=== PATIENT | female | born 1950 | race Caucasian/White ===

== ENCOUNTER 2018-12-29 21:24 | Emergency (ER) | payer MEDICARE ==
[2018-12-29] MEDS ORDERED: Ketorolac TAB * 10 MG TAB PO ONE (23:56)
[2018-12-29] MEDS ORDERED: LoraTADine TAB(NF) 10 MG TAB (AUTOSUB to CETIRIZINE) PO ONE (23:58)
--- NOTE | 2018-12-30 00:36 | ED ---
Throat Pain/Nasal Congestion - HPI Summary HPI Summary: Patient complains of cold symptoms 1 week with sudden onset right ear pain today. Denies fever, sore throat, ROGEL, neck stiffness, N/V/D, CP, SOB, abdominal pain, change in urine, change in BM. Medical history is none. Patient took dayquil at 1 PM. - History of Current Complaint Chief Complaint: EDEarPain Time Seen by Provider: 12/29/18 23:45 Hx Obtained From: Patient Onset/Duration: Sudden Onset Severity: Severe Associated Signs And Symptoms: Positive: Negative Cough: Nonproductive - Allergies/Home Medications Allergies/Adverse Reactions: Allergies Allergy/AdvReac Type Severity Reaction Status Date / Time codeine Allergy Nausea And Verified 12/29/18 21:27 Vomiting PMH/Surg Hx/FS Hx/Imm Hx Endocrine/Hematology History: Denies: Hx Anticoagulant Therapy Cardiovascular History: Denies: Hx Cardiac Arrest History: Denies: Hx Dialysis Sensory History: Denies: Hx Eye Prosthesis Opthamlomology History: Denies: Hx Legally Blind EENT History: Denies: Hx Deafness Neurological History: Denies: Hx Dementia Psychiatric History: Denies: Hx Autism Infectious Disease History: No Infectious Disease History: Denies: Traveled Outside the [place] in Last 30 Days - Social History Alcohol Use: None Substance Use Type: Reports: None Smoking Status (MU): Former Smoker Review of Systems Constitutional: Negative Eyes: Negative Positive: Ear Ache, Nasal Discharge Cardiovascular: Negative Positive: Cough Gastrointestinal: Negative Genitourinary: Negative Musculoskeletal: Negative Skin: Negative Neurological: Negative Psychological: Normal All Other Systems Reviewed And Are Negative: Yes Physical Exam Triage Information Reviewed: Yes Vital Signs On Initial Exam: Initial Vitals Temp Pulse Resp BP Pulse Ox 98.5 F 56 18 194/88 97 12/29/18 21:26 12/29/18 21:26 12/29/18 21:26 12/29/18 21:26 12/29/18 21:26 Vital Signs Reviewed: Yes Appearance: Positive: Well-Appearing Skin: Positive: Warm Head/Face: Positive: Normal Head/Face Inspection Eyes: Positive: Normal ENT: Positive: Normal ENT inspection Neck: Positive: Supple Respiratory/Lung Sounds: Positive: Clear to Auscultation Cardiovascular: Positive: Normal Abdomen Description: Positive: Nontender Musculoskeletal: Positive: Normal Neurological: Positive: Normal Psychiatric: Positive: Normal AVPU Assessment: Alert - Dorita Coma Scale Best Eye Response: 4 - Spontaneous Best Motor Response: 6 - Obeys Commands Best Verbal Response: 5 - Oriented Coma Scale Total: 15 Diagnostics - Vital Signs Vital Signs Temp Pulse Resp BP Pulse Ox 12/29/18 21:26 98.5 F 56 18 194/88 97 - Laboratory Lab Statement: Any lab studies that have been ordered have been reviewed, and results considered in the medical decision making process. EENT Course/Dx - Course Course Of Treatment: Patient complains of cold symptoms 1 week with sudden onset right ear pain today. Denies fever, sore throat, ROGEL, neck stiffness, N/V/ D, CP, SOB, abdominal pain, change in urine, change in BM. Medical history is none. Patient took dayquil at 1 PM. Physical exam: ENT exam unremarkable. Lung sounds clear to auscultation bilaterally. Vital signs within normal limits. Pain resolved with 10 mg by mouth Toradol. Elevated BP resolved when pain resolved. - Diagnoses Provider Diagnoses: Ear pain, right Discharge - Sign-Out/Discharge Documenting (check all that apply): Patient Departure Patient Received Moderate/Deep Sedation with Procedure: No - Discharge Plan Condition: Stable Disposition: HOME Patient Education Materials: Earache (ED) Referrals: No Primary Care Phys,NOPCP [Primary Care Provider] - Additional Instructions: Alternate ibuprofen 600 mg with Tylenol 650 mg every 3 hours for control of ear pain. Follow-up with primary care. Return to ED for any new or worsening symptoms. - Billing Disposition and Condition Condition: STABLE Disposition: Home
[2018-12-30] MEDS ORDERED: Ibuprofen TAB* 600 MG PO ONE (01:01)
== END 2018-12-30 01:11 | disposition home or self-care (01) ==
LOC: ED 21:24
DX: H92.01 Otalgia, right ear (principal); R05 Cough; Z87.891 Personal history of nicotine dependence
CPT/HCPCS: 99282; A9270-GY

== ENCOUNTER 2019-08-19 00:03 | Emergency (ER) | payer MEDICARE, MEDICAID ==
[2019-08-19] MEDS ORDERED: EPINEPHRINE 1 MG/ML 1 ML VIAL IM ONE (00:33)
--- NOTE | 2019-08-19 00:33 | ED ---
Complex/Multi-Sys Presentation - HPI Summary HPI Summary: Patient is a 68 y/o F presenting to [facility] via EMS with complaints of diffuse and pruritic hives that onset 1500 08/18/19. She also states that she is experiencing a "tightening" of her upper back between her shoulder blades that has been present for the past few hours. She denies new foods, soap, laundry detergents, or meds. Patient took 50 mg of Benadryl around 2330, 08/18/19. Patient denies SOB or airway Sx. She notes that she ended an 18 year relationship two weeks ago. Patient makes note of a recent syncopal episode which she went to another ED for evaluation. She states that the ED provider told her that her Sx were likely due to anxiety with regards to her recent stress. She denies Hx of HTN, diabetes, HLD. She notes Hx of seasonal allergies but states that present Sx are dissimilar to her previous episodes. On triage, pain is denied. Home medications and allergies are reviewed. - History Of Current Complaint Chief Complaint: EDAllergicReaction Time Seen by Provider: 08/19/19 00:26 Hx Obtained From: Patient Onset/Duration: Lasting Hours, Still Present Timing: Constant, Hours Location: Pain At: - tightening at upper back Associated Signs And Symptoms: Positive: Other - positive - hives, tightening of upper back. Negative: SOB - Allergies/Home Medications Allergies/Adverse Reactions: Allergies Allergy/AdvReac Type Severity Reaction Status Date / Time codeine Allergy Nausea And Verified 12/29/18 21:27 Vomiting PMH/Surg Hx/FS Hx/Imm Hx Endocrine/Hematology History: Denies: Hx Anticoagulant Therapy Cardiovascular History: Denies: Hx Cardiac Arrest Respiratory History: Reports: Hx Seasonal Allergies History: Denies: Hx Dialysis Sensory History: Denies: Hx Eye Prosthesis, Hx Legally Blind, Hx Deafness Opthamlomology History: Denies: Hx Eye Prosthesis, Hx Legally Blind Neurological History: Denies: Hx Dementia Psychiatric History: Denies: Hx Autism Infectious Disease History: No Infectious Disease History: Denies: Traveled Outside the [place] in Last 30 Days - Family History Known Family History: Negative: Respiratory Disease - Social History Alcohol Use: None Substance Use Type: Reports: None Smoking Status (MU): Former Smoker Review of Systems Respiratory: Other - no airway Sx Negative: Shortness Of Breath Musculoskeletal: Other - positive - tightening of upper back Skin: Other - positive - hives All Other Systems Reviewed And Are Negative: Yes Physical Exam - Summary Physical Exam Summary: Appearance: Well-appearing, Well-nourished, lying in bed comfortable Skin: Diffusely scattered urticarial lesions about the torso Eyes: sclera anicteric, no conjunctival pallor ENT: mucous membranes moist Neck: deferred Respiratory: No signs of respiratory distress Cardiovascular: Appears well perfused, pulses are nml Abdomen: deferred Musculoskeletal: Moving all 4 extremities without obvious discomfort Neurological: Awake and alert, mentation is normal, speech is fluent and appropriate Psychiatric: affect is normal, does not appear anxious or depressed Triage Information Reviewed: Yes Vital Signs On Initial Exam: Initial Vitals Temp Pulse Resp BP Pulse Ox 98.6 F 75 16 130/72 98 08/19/19 00:07 08/19/19 00:07 08/19/19 00:07 08/19/19 00:07 08/19/19 00:07 Vital Signs Reviewed: Yes Procedures - Sedation Patient Received Moderate/Deep Sedation with Procedure: No Diagnostics - Vital Signs Vital Signs Temp Pulse Resp BP Pulse Ox 08/19/19 00:07 98.6 F 75 16 130/72 98 - Laboratory Lab Statement: Any lab studies that have been ordered have been reviewed, and results considered in the medical decision making process. Complex Multi-Symp Course/Dx Course Of Treatment: Patient is a 68 y/o F presenting to [facility] via EMS with complaints of diffuse and pruritic hives that onset 1500 08/18/19. She also states that she is experiencing a "tightening" of her upper back between her shoulder blades that has been present for the past few hours. She denies new foods, soap, laundry detergents, or meds. Patient took 50 mg of Benadryl around 2330, 08/18/19. Patient denies SOB or airway Sx. She notes that she ended an 18 year relationship two weeks ago. On physical exam, diffusely scattered urticarial lesions about the torso is noted. Patient was given 0.3 mg epinephrine. She was discharged to home and given strict return precautions. - Diagnoses Provider Diagnoses: Urticaria Discharge ED - Sign-Out/Discharge Documenting (check all that apply): Patient Departure - discharge - Discharge Plan Condition: Stable Disposition: HOME Patient Education Materials: Urticaria (ED) Referrals: Care [facility] [Outside] Additional Instructions: Hives usually will wax and wane over a period of a few days to a week or two. The mainstay of treatment is antihistamines, such as benadryl, zyrtec or claritin, all available over the counter. If you develop other symptoms such as breathing problems or abdominal pain, we should see you back. - Billing Disposition and Condition Condition: STABLE Disposition: Home - Attestation Statements Document Initiated by Armani: Yes Documenting Scribe: MARIANNE DE LOS SANTOS Provider For Whom Armani is Documenting (Include Credential): JAMES RICHARD MD Scribe Attestation: IMARIANNE scribed for JAMES RICHARD MD on 08/19/19 at 0545. Scribe Documentation Reviewed: Yes Provider Attestation: The documentation as recorded by the MARIANNE gomez accurately reflects the service I personally performed and the decisions made by me, JAMES RICHARD MD Status of Scribe Document: Viewed
--- OUTSIDE RECORDS SUMMARY | 2019-08-19 01:21 | XMS REPORT | Continuity of Care Document ---
:1950 External Reference #:[id number] Author Name Darrell Mckeon M.D. Address 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 [phone] Medicine Problems Description No Information Available Social History Type Date Description Comments Sex Unknown ETOH Use Denies alcohol use Tobacco Use Start: Unknown Patient has never smoked Smoking Status Reviewed: 07/26/19 Patient has never smoked Allergies, Adverse Reactions, Alerts Active Allergies Reaction Severity Comments Date Codeine 06/28/2019 Medications Active Medications SIG Qnty Indications Ordering Provider Date Loratadine Take 1 T PO Unknown 10mg Tablets Daily AT 2PM Escitalopram Oxalate TK 1 T PO Once Unknown 10mg D Tablets Levothyroxine Sodium TK 1 T PO Once Unknown 88mcg D Tablets Aspirin NURSING SECRETARY 1 T PO Once Unknown 81mg Chewtabs D Atorvastatin Calcium Unknown 10mg Tablets Fluticasone Propionate Unknown 50mcg/Act Suspension Immunizations Description No Information Available Vital Signs Date Vital Result Comment 07/26/2019 11:07am Intraocular Pressure Left Eye 16 mmHg 06/28/2019 9:50am Intraocular Pressure Right Eye 16 mmHg Intraocular Pressure Left Eye 15 mmHg Results Description No Information Available Procedures Date Code Description Status 07/26/2019 86011 Remove Secondary Cataract, Laser (Yag) Completed 06/28/2019 70738 Oct Retina Completed 06/28/2019 01118 Eye Exam New Comprehensive Completed Medical Devices Description No Information Available Encounters Description No Information Available Assessments Date Code Description Provider 07/26/2019 H26.492 Other secondary cataract, left eye Darrell Mckeon M.D. 06/28/2019 H26.492 Other secondary cataract, left eye Darrell Mckeon M.D. 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 Plan of Treatment Future Appointment(s):08/02/2019 11:30 am - Dominic Jim, OD at [id number] - Darrell Mckeon M.D.H26.492 Other secondary cataract, left eyeFollow up:1-2 wk post yag cap os Dr L Functional Status Description No Information Available Mental Status Description No Information Available Referrals Description No Information Available
--- OUTSIDE RECORDS SUMMARY | 2019-08-19 01:21 | XMS REPORT | Continuity of Care Document ---
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 Medicine Problems Description No Information Available Social History Type Date Description Comments Sex Unknown ETOH Use Denies alcohol use Tobacco Use Start: Unknown Patient has never smoked Smoking Status Reviewed: 08/01/19 Patient has never smoked Allergies, Adverse Reactions, Alerts Active Allergies Reaction Severity Comments Date Codeine 06/28/2019 Medications Active Medications SIG Qnty Indications Ordering Provider Date Loratadine Take 1 T PO Unknown 10mg Tablets Daily AT 2PM Escitalopram Oxalate TK 1 T PO Once Unknown 10mg D Tablets Levothyroxine Sodium TK 1 T PO Once Unknown 88mcg D Tablets Aspirin PARALEGAL LEGAL SECRETARY 1 T PO Once Unknown 81mg Chewtabs D Atorvastatin Calcium Unknown 10mg Tablets Fluticasone Propionate Unknown 50mcg/Act Suspension Immunizations Description No Information Available Vital Signs Date Vital Result Comment 07/26/2019 11:07am Intraocular Pressure Left Eye 16 mmHg 06/28/2019 9:50am Intraocular Pressure Right Eye 16 mmHg Intraocular Pressure Left Eye 15 mmHg Results Description No Information Available Procedures Date Code Description Status 07/26/2019 82454 Remove Secondary Cataract, Laser (Yag) Completed 06/28/2019 54551 Oct Retina Completed 06/28/2019 44780 Eye Exam New Comprehensive Completed Medical Devices Description No Information Available Encounters Description No Information Available Assessments Date Code Description Provider 08/02/2019 Z96.1 Presence of intraocular lens Dominic Jim, OD 08/02/2019 H35.361 Drusen (degenerative) of macula, right eye Dominic Jim , OD 07/26/2019 H26.492 Other secondary cataract, left eye Darrell Mckeon M.D. 06/28/2019 H26.492 Other secondary cataract, left eye Darrell Mckeon M.D. 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 Plan of Treatment 08/02/2019 - Dominic Jim, ODZ96.1 Presence of intraocular lensH35.361 Drusen ( degenerative) of macula, right eyeFollow up:6 mos mac OCT, sooner PRN Functional Status Description No Information Available Mental Status Description No Information Available Referrals Description No Information Available
--- OUTSIDE RECORDS SUMMARY | 2019-08-19 01:21 | XMS REPORT | Continuity of Care Document ---
:1950 External Reference #:[id number] Author Name Darrell Mckeon M.D. Address [address] [place] [place] [address] Care Team Providers Name Role Phone Shari Luke MD - Internal Care Team Information Stubber Medicine Problems Description No Information Available Social History Type Date Description Comments Sex Unknown ETOH Use Denies alcohol use Tobacco Use Start: Unknown Patient has never smoked Smoking Status Reviewed: 06/28/19 Patient has never smoked Allergies, Adverse Reactions, Alerts Active Allergies Reaction Severity Comments Date Codeine 06/28/2019 Medications Active Medications SIG Qnty Indications Ordering Provider Date Loratadine Take 1 T PO Unknown 10mg Tablets Daily AT 2PM Escitalopram Oxalate TK 1 T PO Once Unknown 10mg D Tablets Levothyroxine Sodium TK 1 T PO Once Unknown 88mcg D Tablets Aspirin DEVELOPMENT TEAM LEAD 1 T PO Once Unknown 81mg Chewtabs D Atorvastatin Calcium Unknown 10mg Tablets Fluticasone Propionate Unknown 50mcg/Act Suspension Immunizations Description No Information Available Vital Signs Date Vital Result Comment 06/28/2019 9:50am Intraocular Pressure Right Eye 16 mmHg Intraocular Pressure Left Eye 15 mmHg Results Description No Information Available Procedures Date Code Description Status 06/28/2019 59617 Ophthalmoscopy Initial Completed 06/28/2019 96676 Oct Retina Completed 06/28/2019 73496 Eye Exam New Comprehensive Completed Medical Devices Description No Information Available Encounters Description No Information Available Assessments Date Code Description Provider 06/28/2019 H26.492 Other secondary cataract, left eye Darrell Mckeon M.D. 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 Plan of Treatment 06/28/2019 - Darrell Mckeon M.D.H26.492 Other secondary cataract, left eyeFollow up:yag cap os Dr S 1 wk after with LH35.361 Drusen (degenerative ) of macula, right eyeFollow up:yag cap os Dr S [address] Horvath Functional Status Description No Information Available Mental Status Description No Information Available Referrals Description No Information Available
[2019-08-19 01:36] VITALS: BP 122/57
== END 2019-08-19 01:35 | disposition home or self-care (01) ==
LOC: ED 00:03
DX: L50.9 Urticaria, unspecified (principal); M54.9 Dorsalgia, unspecified; Z88.5 Allergy status to narcotic agent; Z87.891 Personal history of nicotine dependence
CPT/HCPCS: 96372; 99282

== ENCOUNTER 2019-08-20 07:35 | Emergency (ER) | payer MEDICARE, MEDICAID ==
[2019-08-20] MEDS ORDERED: NS 0.9% 1000 ML** 1,000 ML IV ONE (07:44)
[2019-08-20] MEDS ORDERED: Famotidine IV* 10 MG/ML 2 ML (20 mg) IV SLOW PU ONE (07:46)
[2019-08-20] MEDS ORDERED: Dexamethasone IV* 4 MG/ML 5 ML VIAL (20 MG) IVPB ONE (07:46)
[2019-08-20 07:57] LABS: ABS Monocytes 0.6 10^3/ul (0-0.8); ABS Neutrophils 10.7 10^3/ul (1.5-7.7); Hematocrit 47 % (35-47); Hemoglobin 15.7 g/dL (12.0-16.0); Lymphocyte % 8.2 %; Mean Corpuscular HGB Conc 33 g/dL (31-36); Mean Corpuscular Hemoglobin 31 pg (27-31); Mean Corpuscular Volume 94 fL (80-97); Mean Platelet Volume 7.9 fL (7.4-10.4); Platelet Count 238 10^3/uL (150-450); Red Blood Count 5.08 10^6 /uL (3.70-4.87); Red Cell Distribution Width 14 % (10-15); White Blood Count 12.3 10^3/uL (3.5-10.8)
--- NOTE | 2019-08-20 07:57 | ED ---
Skin Complaint - HPI Summary HPI Summary: 68 y/o F presenting to the ED brought in by EMS for a skin complaint. Per EMS, she was seen in the ED the other night for the same thing. She had taken 50mg Benadryl prior to arrival and was given an EpiPen in the ED. Patient states since then, her hives have not resolved. She also reports syncope in a laundromat in [place], fatigue, pruritus, and slight difficulty swallowing and difficulty breathing this morning. She also was given 50mg Benadryl prior to arrival by EMS. She denies fever, pain, or any new foods, medications, clothes, pets, laundry detergent, or contact with new people. Symptoms aggravated by touch. - History of Current Complaint Chief Complaint: EDAllergicReaction Stated Complaint: HIVES PER EMS Hx Obtained From: Patient, EMS Onset/Duration: Started Days Ago, Still Present Skin Exposure Onset/Duration: Days Ago Timing: Constant, Lasting Days Onset Severity: Mild Current Severity: None Pain Intensity: 0 Pain Scale Used: 0-10 Numeric Skin Location: Diffuse Character: Pruritus, Hives, Redness Aggravating Symptom(s): Touch Alleviating Symptom(s): Nothing Associated Signs & Symptoms: Difficulty Breathing, Rash - Allergy/Home Medications Allergies/Adverse Reactions: Allergies Allergy/AdvReac Type Severity Reaction Status Date / Time codeine Allergy Nausea And Verified 12/29/18 21:27 Vomiting PMH/Surg Hx/FS Hx/Imm Hx Previously Healthy: Yes Endocrine/Hematology History: Denies: Hx Anticoagulant Therapy Cardiovascular History: Denies: Hx Cardiac Arrest Respiratory History: Reports: Hx Seasonal Allergies History: Denies: Hx Dialysis Sensory History: Denies: Hx Eye Prosthesis, Hx Legally Blind, Hx Deafness Opthamlomology History: Denies: Hx Eye Prosthesis, Hx Legally Blind Neurological History: Denies: Hx Dementia Psychiatric History: Denies: Hx Autism Infectious Disease History: No Infectious Disease History: Denies: Traveled Outside the [place] in Last 30 Days - Family History Known Family History: Negative: Respiratory Disease - Social History Alcohol Use: None Hx Substance Use: No Substance Use Type: Reports: None Hx Tobacco Use: Yes Smoking Status (MU): Former Smoker Review of Systems Positive: Fatigue. Negative: Fever Positive: Other - difficulty swallowing Positive: Shortness Of Breath Negative: Myalgia Positive: Rash All Other Systems Reviewed And Are Negative: Yes Physical Exam - Summary Physical Exam Summary: VITAL SIGNS: Reviewed. GENERAL: Patient is a well-developed and nourished female who is lying comfortable in the stretcher. Patient is not in any acute respiratory distress. HEAD AND FACE: No signs of trauma. No ecchymosis, hematomas or skull depressions. No sinus tenderness. EYES: PERRLA, EOMI x 2, No injected conjunctiva, no nystagmus. EARS: Hearing grossly intact. Ear canals and tympanic membranes are within normal limits. MOUTH: Oropharynx within normal limits. NECK: Supple, trachea is midline, no adenopathy, no JVD, no carotid bruit, no c- spine tenderness, neck with full ROM. CHEST: Symmetric, no tenderness at palpation. LUNGS: Clear to auscultation bilaterally. No wheezing or crackles. CVS: Regular rate and rhythm, S1 and S2 present, no murmurs or gallops appreciated. ABDOMEN: Soft, non-tender. No signs of distention. No rebound, no guarding, and no masses palpated. Bowel sounds are normal. EXTREMITIES: FROM in all major joints, no edema, no cyanosis or clubbing. NEURO: Alert and oriented x 3. No acute neurological deficits. Speech is normal and follows commands. SKIN: Dry and warm. Diffuse hives with large patches of erythema with irregular borders and blanching Triage Information Reviewed: Yes Vital Signs On Initial Exam: Initial Vitals Temp Pulse Resp BP Pulse Ox 98.4 F 92 16 133/79 98 08/20/19 07:37 08/20/19 07:37 08/20/19 07:37 08/20/19 07:37 08/20/19 07:37 Vital Signs Reviewed: Yes Procedures - Sedation Patient Received Moderate/Deep Sedation with Procedure: No Diagnostics - Vital Signs Vital Signs Temp Pulse Resp BP Pulse Ox 08/20/19 07:37 98.4 F 92 16 133/79 98 - Laboratory Result Diagrams: 08/20/19 07:50 08/20/19 07:50 Lab Statement: Any lab studies that have been ordered have been reviewed, and results considered in the medical decision making process. Re-Evaluation - Re-Evaluation 1st re-eval Re-Evaluation Time: 10:12 Change: Improved Comment: Pt states she feels much better and is agreeable with being discharged. Course/Dx - Course Assessment/Plan: This patient is a 68-year-old female who presents to the emergency department with chief complaint of an allergic reaction. Patient denies any feeling like her throat is closing, denies any swelling of the tongue , swelling of the lips or shortness of breath. We obtained an IV access, the patient was given Decadron, and Pepcid. She was given Benadryl by EMS. Blood work without any significant abnormality except for slight increase in WBCs. The patient doesnt have any fever therefore I do not believe that the patient has an infection. After the patient was given these medications most of her hives and erythema and itching has resolved. Patient with reports that she is feeling much better. Therefore the patient will be discharged home with follow- up with PCP. Patient is hemodynamically stable alert oriented 3. I discussed all the findings and test results with the patient. Patient was instructed to return to the emergency room immediately if any of the symptoms return or worsen . Plan of care was discussed with the patient and understands and agrees. All questions were answered at patient satisfaction. There were no further complaints or concerns. Lung exam before discharge: CTA B/L. Good air exchange. No wheezing or crackles heard. CVS: S1 and S2 present. No murmurs appreciated. Patient is alert and oriented x 3. Patient is hemodynamically stable. Patient will be discharged home with follow up camera repairer in the next 2-3 days - Diagnoses Provider Diagnoses: Allergic reaction Discharge ED - Sign-Out/Discharge Documenting (check all that apply): Patient Departure - Discharge Plan Condition: Stable Disposition: HOME Prescriptions: diPHENhydraMINE PO* [Benadryl PO 25 MG TAB*] 25 mg PO TID PRN #30 tab PRN Reason: Allergy Symptoms Famotidine TAB* [Pepcid 20 MG TAB*] 20 mg PO BID #10 tab predniSONE TAB* [Deltasone 20 MG TAB*] 40 mg PO DAILY #10 tab Patient Education Materials: General Allergic Reaction (ED) Referrals: Care [facility] [Outside] [facility] [Provider Group] Additional Instructions: [facility] with [facility] within the next 1-3 days. Return to the emergency department with any new or worsening symptoms. - Billing Disposition and Condition Condition: STABLE Disposition: Home - Attestation Statements Document Initiated by Scribe: Yes Documenting Scribe: Lisa Rodriguez Provider For Whom Scribe is Documenting (Include Credential): Dimitrios Burnett MD. Scribe Attestation: ILisa, scribed for Dimitrios Burnett MD. on 08/20/19 at 1849. Scribe Documentation Reviewed: Yes Provider Attestation: The documentation as recorded by the scribe, Lisa Rodriguez accurately reflects the service I personally performed and the decisions made by me, Dimitrios Burnett MD. Status of Scribe Document: Viewed
[2019-08-20 08:13] LABS: Albumin 3.6 g/dL (3.2-5.2); Albumin/Globulin Ratio 1.9 (1-3); BUN/Creatinine Ratio 13.6 (8-20); C Reactive Protein 24.9 mg/L (<8.01); Calcium 8.7 mg/dL (8.6-10.3); EGFR African American 64.9 (>60); EGFR Non-African American 53.6 (>60); Globulin 1.9 g/dL (2-4); Potassium 4.3 mmol/L (3.5-5.0); Total Bilirubin 0.8 mg/dL (0.2-1.0); Total Protein 5.5 g/dL (6.4-8.9)
[2019-08-20 09:50] LABS: Urine Appearance Cloudy; Urine Bacteria 1+ (Absent); Urine Bilirubin Negative (Negative); Urine Blood Negative (Negative); Urine Color Yellow; Urine Glucose Negative (Negative); Urine Ketones Negative (Negative); Urine Nitrite Negative (Negative); Urine Protein Negative (Negative); Urine Red Blood Cell 1+(3-5/hpf) (Absent); Urine Specific Gravity 1.019 (1.010-1.030); Urine Squamous Epithelial Cell Present (Absent); Urine Urobilinogen Negative (Negative); Urine White Blood Cell 1+(6-10/hpf) (Absent)
[2019-08-20 10:40] VITALS: BP 128/55
--- NOTE | 2019-08-23 10:18 | ED ---
Imaging and Labs Follow Up Follow Up Type: Labs/Cultures Labs/Culture Result: Urine culture growing >100k janell epidermidis Patient Communication/Plan: Culture discussed with pt. today at 1017. She notes she was recently treated for a vaginal infection and wonders if those medications would cover culture. On chart review it appears pt. was treated with flagyl and diflucan. Will treat with macrobid based on culture. Provider Diagnoses: Allergic reaction
--- NOTE | 2019-08-23 10:30 | ED ---
Imaging and Labs Follow Up Follow Up Type: Labs/Cultures Labs/Culture Result: Urine Provider Diagnoses: Allergic reaction
== END 2019-08-20 10:33 | disposition home or self-care (01) ==
LOC: ED 07:35
DX: T78.40XA Allergy, unspecified, initial encounter (principal); X58.XXXA Exposure to other specified factors, initial encounter; R55 Syncope and collapse; R53.83 Other fatigue; R06.00 Dyspnea, unspecified; Z88.5 Allergy status to narcotic agent; Z87.891 Personal history of nicotine dependence
CPT/HCPCS: 36415; 80053; 81003; 81015; 83605; 85025; 86140; 87077; 87086; 87186; 96361; 96374; 96375; 99283; J1100